=== PATIENT | female | born 1945 | race Caucasian/White ===

== ENCOUNTER 2017-09-02 11:10 | Day surgery (SDC) | payer OTHER ==
[~2017-09-02] VITALS: Ht 165.1 cm; Wt 71.5 kg
[~2017-09-02 11:10] MED LIST: ASPIRIN81 M2 PO; AUGMENTIN875 MG PO; CARAFATE1 GM PO; DETROL LA4 MG PO; ERGOCALCIF50000 UNIT PO; FLEXERIL10 MG PO; GLIPIZIDE ER2.5 MG PO; IBUPROFEN600 MG PO; LOSARTAN POTAS100 MG PO; METFORMIN HCL500 MG PO; NITROSTAT0.4 MG SL; NORVASC10 MG PO; ONDANSETRON HCL4 MG PO; PRILOSEC40 MG PO; PROAIR HFA8.5 GM IH; SIMVASTATIN40 MG PO; TOPROL XL200 MG PO; TRAZODONE HCL50 MG PO; [UNRECOGNIZED DRUG - OTHER] PO
[2017-09-02 21:45] VITALS: BP 140/73
[2017-09-02 23:20] VITALS: BP 134/70
[2017-09-03 04:40] VITALS: BP 122/65
[2017-09-03 05:52] LABS: BASOPHIL (%) 0.7 % (0-1); BASOPHIL COUNT 0.1 K/uL (0-0.1); EOSINOPHIL (%) 2.5 % (0-5); EOSINOPHIL COUNT 0.2 K/uL (0-0.3); HEMATOCRIT 33.6 % (36.0-46.0); HEMOGLOBIN 11.2 G/DL (11.9-15.5); IMMATURE GRANULOCYTE (%) 0.2 % (0.0-0.7); LYMPHOCYTE (%) 24.3 % (15-42); LYMPHOCYTE COUNT 2.2 K/uL (1.0-2.8); MCH 30.1 PG (29.0-34.0); MCHC 33.3 G/DL (30.0-36.0); MCV 90.3 FL (83-99); MONOCYTE (%) 6.5 % (3-12); MONOCYTE COUNT 0.6 K/uL (0-0.8); NEUTROPHIL (%) 65.8 % (45-76); NEUTROPHIL COUNT 6.1 K/uL (1.8-6.4); PLATELET COUNT 271 K/uL (156-360); RBC DIS.WIDTH-CV 13.3 % (11.8-14.6); RBC DIS.WIDTH-SD 43.9 % (39-53); RED BLOOD COUNT 3.72 M/uL (3.80-5.20); WHITE BLOOD COUNT 9.2 K/uL (4.1-10.2)
[2017-09-03 06:12] LABS: CHLORIDE 109 MEQ/L (99-109); CREATININE 0.8 MG/DL (0.6-1.3); GFR ESTIMATE (CALCULATED) > 59 mL/min/; GLUCOSE 173 mg/dL (70-99); SODIUM 144 MEQ/L (136-147); UREA NITROGEN (BUN) 11 mg/dL (9-23)
[2017-09-03 06:27] LABS: POTASSIUM 3.4 MEQ/L (3.7-5.4)
[2017-09-03 07:20] VITALS: BP 128/62
[2017-09-03] MEDS ORDERED: CLOPIDOGREL75 MG PO (09:54)
[2017-09-03] MEDS ORDERED: ASPIR-LOW81 MG PO (09:54)
== END 2017-09-03 12:36 | disposition home or self-care (01) ==
LOC: CATH 11:10 → ENRESERV 14:44 → 2SOUTH 14:47 → ENRESERV 17:31 → 4EAST 21:40 → CATH 09-07 11:30
PROVIDERS: Internal Medicine Cardiovascular Disease
DX: I25.10 Atherosclerotic heart disease of native coronary artery without angina pectoris (principal); I10 Essential (primary) hypertension; E78.5 Hyperlipidemia, unspecified; E11.9 Type 2 diabetes mellitus without complications; Z79.84 Long term (current) use of oral hypoglycemic drugs; Z79.82 Long term (current) use of aspirin
CPT/HCPCS: 80048; 82948; 85025; 85347; 93005; C1725; C1769; C1874; C1887; C1894; G0378; J0153; J0461; J1644; J2250; J3010; J3246; J7030